=== PATIENT | male | born 2000 | race Caucasian/White ===

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

== ENCOUNTER 2023-08-22 16:53 | Emergency (ER) | payer OTHER, BC, SELFPAY ==
[2023-08-22 16:54] VITALS: BP 155/79; PULSE 92; RESP 18; TEMP 36.1; O2SAT 97
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
--- NOTE | 2023-08-22 17:35 | RAD_ITS ---
EXAM: XR LEFT RIBS AND AP CHEST, 3 OR MORE VIEWS CLINICAL INDICATION: injury TECHNIQUE: Frontal and oblique views of the left ribs and frontal view of the chest. COMPARISON: No relevant prior studies available. FINDINGS: LUNGS AND PLEURAL SPACES: Unremarkable. No consolidation or edema. No pneumothorax. No effusion. HEART: Unremarkable. Cardiac silhouette not enlarged. MEDIASTINUM: Central airways and mediastinal contour are unremarkable. BONES/JOINTS: Unremarkable. No evidence of displaced rib fractures. RAD/Ribs Uni Min 3V w/PA Chest IMPRESSION: Negative chest and left ribs series. Electronically Signed: Omar Altman MD at 18:22 EDT ,
--- NOTE | 2023-08-22 17:35 | RAD_ITS ---
EXAM: XR LUMBOSACRAL SPINE, 2 OR 3 VIEWS CLINICAL INDICATION: back pain TECHNIQUE: Frontal and lateral views of the lumbar spine and sacrum. COMPARISON: No relevant prior studies available. FINDINGS: VERTEBRAE: Unremarkable. Preserved vertebral body height. No fracture. No spondylolisthesis. Preservation of the normal lumbar lordosis. No significant facet arthropathy. DISC SPACES: No acute findings. Disc spaces are maintained. GASTROINTESTINAL TRACT: Unremarkable as visualized. Included bowel gas pattern is non-obstructive. RAD/Lumbar Spine 2 or 3 Views IMPRESSION: No evidence of lumbar spinal fracture or spondylolisthesis. Electronically Signed: Omar Altman MD at 18:19 EDT ,
[2023-08-22 18:12] VITALS: O2SAT 99
[2023-08-22 18:13] LABS: Bacteria 0 SEEN /hpf (None Seen); Mucous, Urine 0 SEEN /hpf (<or=2+); Red Blood Cells-Urine 0 SEEN /hpf (0-5); Squamous Epithelial Cells - UA 0 SEEN /hpf (0-5)
[2023-08-22 18:17] LABS: Color, Urine Yellow (Yellow); Glucose, Dipstick Normal (Normal); Ketone-Dipstick Negative (Negative); Leukocyte Esterase-Dipstick Negative /ul (Negative); Nitrite-Dipstick Negative (Negative); Occult Blood-Urine Negative /ul (Negative); Protein-Dipstick 30 mg/dl (Negative); Urine Bilirubin Dipstick Negative (Negative); Urine Clarity Clear (Clear); Urine Urobilinogen Normal (Normal)
[2023-08-22 18:45] LABS: White Blood Cells 0 SEEN /hpf (0-5)
[2023-08-22 19:01] VITALS: BP 129/88; PULSE 73; RESP 15; TEMP 36.8; O2SAT 100
== END 2023-08-22 19:03 | disposition home or self-care (01) ==
LOC: ED 17:30
PROVIDERS: Emergency Provider Emergency Medicine; PCP Family Medicine; Visit Provider Emergency Medicine
DX: S39.012A Strain of muscle, fascia and tendon of lower back, initial encounter (principal); S20.212A Contusion of left front wall of thorax, initial encounter; V43.52XA Car driver injured in collision with other type car in traffic accident, initial encounter
CPT/HCPCS: 71101; 72100; 81001; 99282

== ENCOUNTER 2024-03-22 08:30 | Emergency (ER) | payer BC, SELFPAY ==
[2024-03-22 08:30] VITALS: BP 144/99; PULSE 94; RESP 16; TEMP 36.6; O2SAT 100; BMI 33.0
--- NOTE | 2024-03-22 09:03 | EDS_ITS ---
HPI HPI - GI History of Present Illness Chief Complaint: Abd Pain Informant: patient Abdominal Pain/Flank Pain Onset: Today Context: Sudden Onset Timing: Continuous Quality: Aching and Cramping Location: Epigastric, RUQ and LUQ Worsened by: - (Stretching and bending forward) Relieved by: Nothing Nausea/Vomiting/Emesis GI Symptom: Positive for Nausea and Vomiting Quality: Positive for Nonbilious; Negative for Blood streaks, Coffee ground or Hematemesis Diarrhea/Melena/Hematochezia GI Symptom: Positive for Diarrhea; Negative for Melena or Hematochezia Associated Symptoms Associated Symptoms: Negative for Dysuria, Frequency or Hematuria Narrative Narrative: Patient presents with abdominal pain that began this morning. Patient woke up early this morning and had nausea and vomiting. Patient states he had watery diarrhea at that time as well. Patient states he was able to go back to sleep. Patient states he woke up a couple hours later and had similar symptoms. Patient states that when he woke up again, he started having some cramping abdominal pain. Patient states that it is mainly over the upper abdomen. Patient states it is worse whenever he tries to stretch his abdomen or bends completely forward. Patient denies any hematemesis or coffee-ground emesis. Patient denies any melena or hematochezia. Patient denies any dysuria, hematuria, or frequency. PFSH PFSH Medical History no medical history no medical history Home Medications ?Medication ?Instructions ?Recorded ?Last Taken ?Type pantoprazole 20 mg tablet,delayed 20 mg PO DAILY #30 TABLETS 08/21/20 Unknown Rx release amoxicillin 875 mg-potassium 875 mg PO Q12H #20 TABLETS 03/22/24 Unknown Rx clavulanate 125 mg tablet Allergy/AdvReac Type Severity Reaction Status Date / Time sweet potato Allergy PT UNSURE Verified 03/22/24 08:59 OF REACTION Family History Other Cancer Surgical History no surgical history no surgical history Social History Smoking Status: Never smoker ROS ROS ED Constitutional Constitutional ED: Reports chills and subjective; Denies fever(s) Eyes Eyes: Denies blurry vision or change in vision ENT ENT ED: Denies rhinorrhea or sore throat Cardiovascular Cardiovascular: Reports chest pain; Denies palpitations Respiratory/Chest Respiratory/Chest: Denies cough or dyspnea Gastrointestinal Gastrointestinal: Reports abdominal pain, diarrhea, nausea and vomiting; Denies melena Genitourinary Genitourinary ED: Denies dysuria or hematuria Musculoskeletal Musculoskeletal: Denies back pain or neck pain Integumentary Denies abscess or rash Neurologic Neurologic: Denies headache(s) or weakness Allergic/Immunologic Allergic/Immunologic ED: Denies mouth swelling or urticaria EXAM Physical Exam Const Vital Signs: 03/22/24 08:30 03/22/24 10:30 Temperature 97.8 F Temperature Source Oral Pulse Rate 94 83 Respiratory Rate 16 16 Blood Pressure 144/99 H 133/79 H Blood Pressure Mean 114 97 Pulse Ox 100 99 Oxygen Delivery Method Room Air Room Air Positive well nourished and well developed General Appearance ED: well developed and NAD HEENT Reports moist mucous membranes normocephalic and atraumatic Neck supple and no JVD Resp normal respiratory effort and clear to auscultation bilaterally Cardio regular rate and regular rhythm GI non-distended Palpation: soft and tender epigastric, LUQ and RUQ; Negative for guarding or rebound tenderness present Neuro CN's II-XII intact bilaterally, moves all extremities and no sensory deficits noted Sensorium / Orientation: alert Motor Exam: strength 5/5 throughout Psych mental status grossly normal and thought process normal MDM MDM MDM Narrative Medical decision making narrative: Differential diagnosis includes gastritis, pancreatitis, cholecystitis, cholelithiasis, peptic ulcer disease, duodenal ulcer, and viral illness. CBC will be obtained to assess for leukocytosis and anemia. Comprehensive metabolic profile will be obtained to assess for hepatic function, renal function, and electrolyte abnormality. Lipase will be obtained to assess for pancreatitis. Urinalysis will be obtained to assess for urinary tract infection. CT scan of the abdomen pelvis will be obtained to assess for bowel obstruction and perforation. Lab Data Attestation: I reviewed the patient's lab results. Lab results narrative: CBC was reviewed. There is a mild leukocytosis of 11.2. The remainder was essentially within normal limits. Comprehensive metabolic profile was reviewed and was within normal limits. Lipase was reviewed and was normal at 19. Urinalysis was reviewed. There is no evidence of urinary tract infection or hematuria. Labs: Laboratory Results - last 24 hr 03/22/24 03/22/24 09:04 10:12 WBC 11.2 H RBC 5.44 Hgb 17.1 H Hct 48.3 MCV 88.8 MCH 31.4 MCHC 35.4 RDW Std Deviation 39.3 RDW Coeff of Pilar 12.1 Plt Count 271 MPV 10.1 Immature Gran % (Auto) 0.400 Neut % (Auto) 84.4 H Lymph % (Auto) 6.5 L [place] % (Auto) 7.4 Eos % (Auto) 0.9 Baso % (Auto) 0.4 Absolute Neuts (auto) 9.4 H Absolute Lymphs (auto) 0.73 L Nucleated RBC % 0 Sodium 138 Potassium 4.3 Chloride 106 Carbon Dioxide 26.0 Anion Gap 6 BUN 17 Creatinine 0.91 Estim Creat Clear Calc 163.58 Est GFR (MDRD) Af Amer 133 Est GFR (MDRD) Non-Af 110 BUN/Creatinine Ratio 18.6 Glucose 126 H Calcium 9.2 Total Bilirubin 0.60 AST 22 ALT 48 Alkaline Phosphatase 80 Total Protein 7.8 Albumin 3.7 Globulin 4.1 Albumin/Globulin Ratio 0.9 Lipase 19 Urine Color Yellow Urine Clarity Clear Urine pH 7.0 Ur Specific [place] 1.005 Urine Protein 15 H Urine Glucose (UA) Normal Urine Ketones Negative Urine Occult Blood Negative Urine Nitrite Negative Urine Bilirubin Negative Urine Urobilinogen Normal Ur Leukocyte Esterase Negative Urine RBC 0 SEEN Urine WBC 0 SEEN Ur Squamous Epith Cells 0-5 SEEN Urine Bacteria 0 SEEN Urine Mucus 0 SEEN Radiography Diagnostic Testing: Clinical Impression(s) from Imaging Studies Abdomen/Pelvis CT 03/22/24 09:09 IMPRESSION: Circumferential wall thickening of the descending and sigmoid colon which may be partially secondary to the incompletely distended state and/or colitis. Electronically Signed: Jolly Tijerina MD at 10:14 EDT , CT scan of the abdomen pelvis was obtained. There is circumferential wall thickening of the descending and sigmoid colon which may be due to colitis. There is no evidence of any abscess or perforation. This was interpreted by the radiologist was also independently reviewed by myself. Treatment and Re-Evaluation :: Patient was given Bentyl and Zofran. Patient was advised of his findings. Patient was given a dose of Augmentin here. Patient was given a prescription for Augmentin. Patient was instructed to follow-up with his primary care physician in 5 to 7 days. Patient was instructed return if worse in any way. Patient understood and was agreeable with the plan. All questions were answered. Discharge Plan Triage Chief Complaint: Abd Pain ED Provider: Harley Mckeon Dx/Rx/DC Orders Clinical Impression: Colitis, Abdominal pain Instructions: ED Understanding Colitis Prescriptions: New amoxicillin-pot clavulanate 875-125 mg tablet 875 mg PO Q12H Qty: 20 0RF No Action pantoprazole 20 MG tablet 20 mg PO DAILY Qty: 30 0RF Primary Care Provider: Akin Rainey Referrals: Akin Rainey MD [Primary Care Provider] - 5-7 Days Print Language: Mos[place]o Disposition Disposition: Home, Self Care
--- NOTE | 2024-03-22 09:09 | CT_ITS ---
STUDY: CT ABDOMEN AND PELVIS WITH CONTRAST - URINARY TRACT REASON FOR EXAM: Male, 24 years old. Abdominal pain RADIATION DOSAGE (If Supplied By Facility): CTDIvol = ( 18.55 ) mGy, DLP = ( 1394.10 ) mGycm TECHNIQUE: IV 100mL Isovue-300 was administered. Transaxial images were obtained from the dome of the diaphragm to the symphysis pubis subsequent to intravenous contrast administration. Multiplanar coronal and sagittal images were reformatted. The protocol utilizes one or more of the following dose reduction techniques: automated exposure control, adjustment of mA and/or kV according to patient size,and/or use of iterative reconstruction technique. COMPARISON: No relevant prior comparison study available FINDINGS: The visualized lung bases are unremarkable. The visualized portions of the heart are within normal limits. Normal liver. Normal gallbladder and extrahepatic biliary system. Normal spleen. Normal pancreas. Normal bilateral adrenal glands. Normal visualized stomach. Normal small intestine. The colon is incompletely distended. There are scattered air-fluid levels throughout the colon. There is circumferential wall thickening of the descending and sigmoid colon and prominence of the vasa recta adjacent to the sigmoid colon. The appendix is visualized and appears normal. Normal abdominal aorta. No retroperitoneal adenopathy. Normal right kidney. Normal left kidney. Normal urinary bladder. Normal abdominal wall. There is a lumbosacral transitional vertebra with bilateral pars defects. CT/Abdomen/Pelvis W IV Cont ONLY IMPRESSION: Circumferential wall thickening of the descending and sigmoid colon which may be partially secondary to the incompletely distended state and/or colitis. Electronically Signed: Jolly Tijerina MD at 10:14 EDT ,
[2024-03-22] MEDS: Dicyclomine 20 MG/2 ML Vial IM (09:27)
[2024-03-22] MEDS: Ondansetron 4 MG/2 ML Vial IV (09:27)
[2024-03-22 09:31] LABS: Absolute Lymphocyte Count 0.73 X10^3/uL (0.83-4.51); Absolute Neutrophil Count 9.4 X10^3/uL (2.0-7.7); Basophil# 0.04 X10^3/uL; Basophil% 0.4 % (0-1); Eosinophils% 0.9 % (0-5); Hematocrit 48.3 % (40-54); Hemoglobin 17.1 g/dL (13.0-16.5); Lymphocyte # 0.73 X10^3/ul (0.83-4.51); Lymphocyte % 6.5 % (19-41); Mean Corp Hgb Conc 35.4 g/dL (32-36); Mean Corpuscular Hgb 31.4 pg (27.0-32.0); Mean Corpuscular Volume 88.8 fL (80-94); Mean Platelet Vol. 10.1 fl (6.2-12.0); Monocyte# 0.83 X10^3/uL; Monocyte% 7.4 % (0-10); NRBC Flagged by Analyzer 0 % (0-5); Neutrophil # 9.43 X10^3/uL (2.7-7.7); Neutrophil % 84.4 % (47-70); Platelet Count 271 K/mm3 (150-450); RBC Distribution Width CV 12.1 % (11.6-14.6); RBC Distribution Width SD 39.3 fl (35.1-43.9); Red Blood Count 5.44 M/mm3 (4.6-6.2); White Blood Count 11.2 K/mm3 (4.4-11.0)
[2024-03-22 09:55] LABS: ALB/GLOB Ratio 0.9 RATIO (0.9-2.4); AST(SGOT) 22 U/L (15-37); Alanine Aminotransfer ALT/SGPT 48 U/L (16-61); Albumin, Serum 3.7 g/dL (3.2-5.0); Alkaline Phosphatase 80 U/L (45-117); Anion Gap 6 (5-15); BUN 17 mg/dL (7-18); BUN/Creat Ratio 18.6 RATIO (10-20); Calcium,Total 9.2 mg/dL (8.5-10.1); Chloride 106 mmol/L (98-107); Creatinine, Serum 0.91 mg/dL (0.70-1.30); EST Glomerular Filtration Rate 110 mL/min (>60); Est Glom Filt Rate - Afr Amer 133 mL/min (>60); Estimated Creatinine Clearance 163.58 ml/min; Globulin 4.1 g/dL (2.2-4.2); Glucose 126 mg/dL (74-106); Lipase 19 U/L (13-75); Potassium 4.3 mmol/L (3.5-5.1); Protein, Total 7.8 g/dL (6.4-8.2); Sodium Level 138 mmol/L (136-145)
[2024-03-22 10:30] VITALS: BP 133/79; PULSE 83; RESP 16; O2SAT 99
[2024-03-22 10:36] LABS: Bacteria 0 SEEN /hpf (None Seen); Mucous, Urine 0 SEEN /hpf (<or=2+); Red Blood Cells-Urine 0 SEEN /hpf (0-5); White Blood Cells 0 SEEN /hpf (0-5)
[2024-03-22 10:37] LABS: Color, Urine Yellow (Yellow); Glucose, Dipstick Normal (Normal); Ketone-Dipstick Negative (Negative); Leukocyte Esterase-Dipstick Negative /ul (Negative); Nitrite-Dipstick Negative (Negative); Occult Blood-Urine Negative /ul (Negative); Protein-Dipstick 15 mg/dl (Negative); Specific Gravity, Urine 1.005 (1.002-1.030); Urine Bilirubin Dipstick Negative (Negative); Urine Clarity Clear (Clear); Urine Urobilinogen Normal (Normal)
[2024-03-22 10:45] LABS: Squamous Epithelial Cells - UA 0-5 SEEN /hpf (0-5)
[2024-03-22] MEDS: Amox/Clavulanate 875 MG Tablet PO (11:55)
[2024-03-22 12:00] VITALS: RESP 14
[2024-03-22 12:02] VITALS: BP 133/79; PULSE 83; RESP 14; TEMP 36.6; O2SAT 99
== END 2024-03-22 12:02 | disposition home or self-care (01) ==
PROVIDERS: Emergency Provider Emergency Medicine; PCP Family Medicine; Visit Provider Emergency Medicine
DX: K52.9 Noninfective gastroenteritis and colitis, unspecified (principal); R11.2 Nausea with vomiting, unspecified; R07.9 Chest pain, unspecified; R10.9 Unspecified abdominal pain
CPT/HCPCS: 74177; 80053; 81001; 83690; 85025; 96372; 96374; 99283; Q9967; A4216; J2405

== ENCOUNTER 2025-05-22 20:06 | Emergency (ER) | payer OTHER, BC, SELFPAY ==
[2025-05-22 20:07] VITALS: BP 148/85; PULSE 91; RESP 18; TEMP 35.9; O2SAT 98
--- NOTE | 2025-05-22 20:18 | RAD_ITS ---
PROCEDURE: LEFT TIBIA FIBULA 2 VIEWS 05/22/2025 REASON FOR EXAM: PAIN TO LEFT CALF TECHNIQUE: Procedure Code: RADTF Modality: DX Procedure: TIBIA FIBULA 2 VIEWS COMPARISON: None. FINDINGS: No acute fracture or dislocation. Alignment is anatomic. Preserved visualized joint spaces. No aggressive osseous lesion. No soft tissue swelling or unusual mineralization appreciated. RAD/Tibia & Fibula 2 Views IMPRESSION: No acute osseous abnormality. Reading Location: [id number]
[2025-05-22 22:35] VITALS: BMI 34.7
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
[2025-05-22 23:15] VITALS: BP 102/90; PULSE 80; RESP 16; TEMP 35.9; O2SAT 98
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
== END 2025-05-22 23:16 | disposition home or self-care (01) ==
LOC: ED 23:09
PROVIDERS: Emergency Provider Emergency Medicine; PCP Family Medicine; Visit Provider Emergency Medicine
DX: S86.112A Strain of other muscle(s) and tendon(s) of posterior muscle group at lower leg level, left leg, initial encounter (principal); I83.892 Varicose veins of left lower extremity with other complications; E66.9 Obesity, unspecified; X58.XXXA Exposure to other specified factors, initial encounter; Y93.11 Activity, swimming; M79.662 Pain in left lower leg
CPT/HCPCS: 73590; 99283